=== PATIENT | male | born 1975 | race Hispanic/Latino ===

== ENCOUNTER 2017-04-30 19:29 | Emergency (ER) | payer SELFPAY ==
[2017-04-30 19:32] VITALS: BMI 24.2
[2017-04-30 19:34] VITALS: RESP 16
--- NOTE | 2017-04-30 20:19 | ED PDOC ---
Arrival/HPI - General Chief Complaint: Psychiatric Evaluation Time Seen by Provider: 04/30/17 19:30 Historian: EMS, Police EM Caveat: Intoxicated - History of Present Illness Narrative History of Present Illness (Text): 04/30/17 19:30 A 42 year old male is brought into the emergency department via EMS, accompanied by police for alcohol intoxication and suicidal ideation. HPI and ROS limited due to intoxication. Past Medical History - Provider Review Nursing Documentation Reviewed: Yes - Psychiatric Hx Substance Use: No Family/Social History - Physician Review Nursing Documentation Reviewed: Yes Family/Social History: Unknown Family HX Smoking Status: Unknown If Ever Smoked Hx Alcohol Use: No Hx Substance Use: No Allergies/Home Meds Allergies/Adverse Reactions: Allergies No Known Allergies Allergy (Verified 04/30/17 19:32) Review of Systems - Review of Systems Systems not reviewed;Unavailable: Intoxicated Physical Exam Vital Signs Reviewed: Yes Vital Signs Temp Pulse Resp BP Pulse Ox 05/01/17 09:00 98.2 F 86 16 129/76 96 04/30/17 23:17 98.6 F 97 H 16 115/78 100 04/30/17 19:33 98.7 F 128 H 16 112/83 100 Temperature: Afebrile Blood Pressure: Normal Pulse: Tachycardic Respiratory Rate: Normal Appearance: Positive for: Well-Appearing, Non-Toxic, Comfortable Pain Distress: None Mental Status: Positive for: Alert and Oriented X 3 - Systems Exam Head: Present: Atraumatic, Normocephalic Pupils: Present: PERRL Extroacular Muscles: Present: EOMI Conjunctiva: Present: Normal Mouth: Present: Moist Mucous Membranes Neck: Present: Normal Range of Motion Respiratory/Chest: Present: Clear to Auscultation, Good Air Exchange. No: Respiratory Distress, Accessory Muscle Use Cardiovascular: Present: Regular Rate and Rhythm, Normal S1, S2. No: Murmurs Abdomen: Present: Normal Bowel Sounds. No: Tenderness, Distention, Peritoneal Signs Back: Present: Normal Inspection Upper Extremity: Present: Normal Inspection. No: Cyanosis, Edema Lower Extremity: Present: Normal Inspection. No: Edema Neurological: Present: GCS=15, CN II-XII Intact, Speech Normal Skin: Present: Warm, Dry, Normal Color. No: Rashes Psychiatric: Present: Alert, Oriented x 3, Normal Insight, Normal Concentration , Agitated Medical Decision Making ED Course and Treatment: 04/30/17 19:30 Impression: A 42 year old male with alcohol intoxication and suicidal ideation. Differential Diagnosis include but are not limited to: Alcohol intoxication Plan: -- EKG -- Labs -- Urinalysis -- Reassess and disposition Prior Visits: Notes and results from previous visits were reviewed. The patient last presented to the emergency department yesterday for psychiatric evaluation. Progress Notes: 04/30/17 19:51 The patient became aggressive and cody sweeney was called. Patient give Geodon and place on restraints. 04/30/17 22:17 EKG reviewed by me: NSR @ 93 bpm. Prolonged QT. - Lab Interpretations Lab Results: 04/30/17 21:41 04/30/17 21:41 Lab Results 05/01/17 06:30: Urine Opiates Screen Negative, Urine Methadone Screen Negative, Ur Barbiturates Screen Negative, Ur Phencyclidine Scrn Negative, Ur Amphetamines Screen Negative, U Benzodiazepines Scrn Positive H, U Oth Cocaine Metabols Negative, U Cannabinoids Screen Negative 05/01/17 06:00: Urine Color Yellow, Urine Appearance Clear, Urine pH 6.0, Ur Specific [place] 1.015, Urine Protein 30 H, Urine Glucose (UA) >=1000, Urine Ketones 15 H, Urine Blood Negative, Urine Nitrate Negative, Urine Bilirubin Negative, Urine Urobilinogen 1.0 H, Ur Leukocyte Esterase Negative, Urine RBC 0 - 2, Urine WBC 0 - 2, Ur Epithelial Cells 0 - 2 04/30/17 21:41: Alcohol, Quantitative 287 H 04/30/17 21:41: Salicylates < 1 L, Acetaminophen < 10.0 L 04/30/17 21:41: Sodium 139, Potassium 3.1 L, Chloride 101, Carbon Dioxide 19 L, Anion Gap 22 H, BUN 13, Creatinine 0.8, Est GFR ( Amer) > 60, Est GFR ( Non-Af Amer) > 60, Random Glucose 266 H, Calcium 9.6, Total Bilirubin 0.7, AST 91 H, ALT 87 H, Alkaline Phosphatase 81, Total Protein 7.9, Albumin 4.5, Globulin 3.4, Albumin/Globulin Ratio 1.3 04/30/17 21:41: WBC 6.5 D, RBC 4.87, Hgb 16.3, Hct 45.1, MCV 92.6, MCH 33.5, MCHC 36.1, RDW 12.0, Plt Count 153, MPV 10.1, Gran % 49.1 L, Lymph % (Auto) 43.5 H, [place] % (Auto) 5.1, Eos % (Auto) 1.4 L, Baso % (Auto) 0.9, Gran # 3.19, Lymph # 2.8, [place] # 0.3, Eos # 0.1, Baso # 0.06 I have reviewed the lab results: Yes - RAD Interpretation Radiology Orders: 05/01/17 06:55 CHEST PORTABLE [RAD] Stat - Medication Orders Current Medication Orders: Discontinued Medications Lorazepam (Ativan) 2 mg PO ONCE ONE PRN Reason: Protocol Stop: 05/01/17 07:44 Last Admin: 05/01/17 08:00 Dose: 2 mg Potassium Chloride (K-Dur 20 Meq Er Tab) 40 meq PO STAT STA Stop: 05/01/17 09:36 Ziprasidone (Geodon Inj) 10 mg IM STAT STA PRN Reason: Protocol Stop: 04/30/17 19:52 Last Admin: 04/30/17 20:03 Dose: 10 mg Ziprasidone (Geodon Inj) Confirm Administered Dose 20 mg IM .STK-MED ONE Stop: 04/30/17 19:56 Last Admin: 04/30/17 20:03 Dose: - Transfer of Care Patient signed out to Dr:: gabbi dominguez - Scribe Statement The provider has reviewed the documentation as recorded by the Annaibyasmin Yoo Provider Scribe Attestation: All medical record entries made by the Annaibyasmin were at my direction and personally dictated by me. I have reviewed the chart and agree that the record accurately reflects my personal performance of the history, physical exam, medical decision making, and the department course for this patient. I have also personally directed, reviewed, and agree with the discharge instructions and disposition. Disposition/Present on Arrival - Present on Arrival Any Indicators Present on Arrival: No History of DVT/PE: No History of Uncontrolled Diabetes: No Urinary Catheter: No History of Decub. Ulcer: No History Surgical Site Infection Following: None - Disposition Have Diagnosis and Disposition been Completed?: Yes Diagnosis: Alcohol intoxication Disposition: HOME/ ROUTINE Disposition Time: 07:00 Condition: GOOD Discharge Instructions (ExitCare): Alcohol Intoxication (ED) Additional Instructions: PLEASE RETURN TO THE EMERGENCY DEPARTMENT FOR NEW OR WORSENING SYMPTOMS. RETURN RIGHT AWAY IF YOU CANNOT FOLLOW UP WITH YOUR PRIMARY CARE DOCTOR, CLINIC, OR SPECIALIST IN 1-2 DAYS. Prescriptions: Folic Acid 1 mg PO DAILY #14 tab chlordiazePOXIDE [Chlordiazepoxide HCl] 25 mg PO DAILY #8 cap Thiamine [Vitamin B1 Tab] 100 mg PO DAILY #14 tab Referrals: [facility] Diane Rewinter, [Non-Staff] - Follow up with primary Ange Aguilar MD [Staff Provider] - Follow up with primary
[2017-04-30 21:47] LABS: ADD MANUAL DIFF? NO
[2017-04-30 21:53] LABS: BASO # 0.06 K/mm3 (0.0-2.0); BASO % 0.9 % (0.0-3.0); EOS # 0.1 (0.0-0.7); EOS % 1.4 % (1.5-5.0); GRAN # 3.19 (1.4-6.5); GRAN % 49.1 % (50.0-68.0); HEMATOCRIT 45.1 % (42.0-52.0); LYMPH # 2.8 (1.2-3.4); LYMPH % 43.5 % (22.0-35.0); MEAN CELL VOLUME 92.6 fL (80.0-105.0); MEAN CORPUSCULAR HEMOGLOBIN 33.5 pg (25.0-35.0); MEAN CORPUSCULAR HGB CONC 36.1 g/dl (31.0-37.0); MEAN PLATELET VOLUME 10.1 fl (7.0-11.0); MONO # 0.3 (0.1-0.6); MONO % 5.1 % (1.0-6.0); PLATELET COUNT 153 10^3/uL (120.0-450.0); WHITE BLOOD COUNT 6.5 10^3/ul (4.5-11.0)
[2017-04-30 22:01] LABS: ALB/GLOB RATIO 1.3 (1.1-1.8); ALKALINE PHOSPHATASE 81 U/L (38-133); ALT/SGPT 87 U/L (7-56); AST/SGOT 91 U/L (15-59); BILIRUBIN,TOTAL 0.7 mg/dL (0.2-1.3); BLOOD UREA NITROGEN 13 mg/dL (7-21); CALCIUM 9.6 mg/dL (8.4-10.5); CARBON DIOXIDE 19 mmol/L (21-33); CHLORIDE 101 mmol/L (95-110); GFR AFRICAN-AMERICAN > 60; GLUCOSE,RANDOM 266 mg/dL (70-110); POTASSIUM 3.1 mmol/L (3.6-5.0); SODIUM 139 mmol/L (132-148); TOTAL PROTEIN 7.9 g/dL (5.8-8.3)
[2017-05-01 06:23] LABS: URINE APPEARANCE CLEAR (CLEAR); URINE BILIRUBIN NEGATIVE (NEGATIVE); URINE BLOOD NEGATIVE (NEGATIVE); URINE COLOR YELLOW (YELLOW); URINE GLUCOSE (UA) >=1000 mg/dL (NEGATIVE); URINE KETONE 15 mg/dL (NEGATIVE); URINE LEUKOCYTE ESTERASE NEGATIVE Leu/uL (NEGATIVE); URINE PROTEIN 30 mg/dL (<30 mg/dL)
[2017-05-01 06:31] LABS: URINE EPITHELIAL CELLS 0 - 2 /hpf (0-5); URINE RBC 0 - 2 /hpf (0-2); URINE WBC 0 - 2 /hpf (0-6)
--- NOTE | 2017-05-01 07:12 | ED PDOC ---
Physical Exam Vital Signs Reviewed: Yes Vital Signs Temp Pulse Resp BP Pulse Ox 04/30/17 23:17 98.6 F 97 H 16 115/78 100 04/30/17 19:33 98.7 F 128 H 16 112/83 100 Temperature: Afebrile Blood Pressure: Normal Pulse: Tachycardic Respiratory Rate: Normal Appearance: Positive for: Well-Appearing, Non-Toxic, Comfortable Pain Distress: None Mental Status: Positive for: Alert and Oriented X 3 Medical Decision Making ED Course and Treatment: 05/01/17 07:11 Pending PES evaluation. 05/01/17 07:40 Reports feeling anxious at this time. Patient currently in no distress. Patient denies SI, HI or any other complaints at this time. chest xray Creator : Kalpesh Coleman MD 05/01/2017 08:35 IMPRESSION: No active disease. 05/01/17 09:35 seen by Cheryle and Dr. Aguilar. pt denies SI or HI at this time Currently pt is ANOx3 to person, place, and time. Has good insight and judgment. Denies suicidal or homicidal ideations. Pt has steady gait, ambulates without difficulty, not slurring speech. Pt able to tolerate PO without any difficulty. Patient denies any complaints at this time. Patient is not tremulous , not tachycardic, no signs or symptoms of alcohol withdrawal. Dr. Aguilar states pt can be dc'd home with librium Rx. Pt states he understands to return to the ER right away for new or worsening symptoms or for inability to f/u with PMD or specialist as instructed. Patient states that he fully agrees with and understands discharge instructions. States that he agrees with the plan and disposition. Verbalized and repeated discharge instructions and plan. I have given the patient opportunity to ask any additional questions. - Lab Interpretations Lab Results: 04/30/17 21:41 04/30/17 21:41 Lab Results 05/01/17 06:30: Urine Opiates Screen Negative, Urine Methadone Screen Negative, Ur Barbiturates Screen Negative, Ur Phencyclidine Scrn Negative, Ur Amphetamines Screen Negative, U Benzodiazepines Scrn Positive H, U Oth Cocaine Metabols Negative, U Cannabinoids Screen Negative 05/01/17 06:00: Urine Color Yellow, Urine Appearance Clear, Urine pH 6.0, Ur Specific [place] 1.015, Urine Protein 30 H, Urine Glucose (UA) >=1000, Urine Ketones 15 H, Urine Blood Negative, Urine Nitrate Negative, Urine Bilirubin Negative, Urine Urobilinogen 1.0 H, Ur Leukocyte Esterase Negative, Urine RBC 0 - 2, Urine WBC 0 - 2, Ur Epithelial Cells 0 - 2 04/30/17 21:41: Alcohol, Quantitative 287 H 04/30/17 21:41: Salicylates < 1 L, Acetaminophen < 10.0 L 04/30/17 21:41: Sodium 139, Potassium 3.1 L, Chloride 101, Carbon Dioxide 19 L, Anion Gap 22 H, BUN 13, Creatinine 0.8, Est GFR ( Amer) > 60, Est GFR ( Non-Af Amer) > 60, Random Glucose 266 H, Calcium 9.6, Total Bilirubin 0.7, AST 91 H, ALT 87 H, Alkaline Phosphatase 81, Total Protein 7.9, Albumin 4.5, Globulin 3.4, Albumin/Globulin Ratio 1.3 04/30/17 21:41: WBC 6.5 D, RBC 4.87, Hgb 16.3, Hct 45.1, MCV 92.6, MCH 33.5, MCHC 36.1, RDW 12.0, Plt Count 153, MPV 10.1, Gran % 49.1 L, Lymph % (Auto) 43.5 H, [place] % (Auto) 5.1, Eos % (Auto) 1.4 L, Baso % (Auto) 0.9, Gran # 3.19, Lymph # 2.8, [place] # 0.3, Eos # 0.1, Baso # 0.06 - RAD Interpretation Radiology Orders: 05/01/17 06:55 CHEST PORTABLE [RAD] Stat - Medication Orders Current Medication Orders: Discontinued Medications Lorazepam (Ativan) 2 mg PO ONCE ONE PRN Reason: Protocol Stop: 05/01/17 07:44 Last Admin: 05/01/17 08:00 Dose: 2 mg Ziprasidone (Geodon Inj) 10 mg IM STAT STA PRN Reason: Protocol Stop: 04/30/17 19:52 Last Admin: 04/30/17 20:03 Dose: 10 mg Ziprasidone (Geodon Inj) Confirm Administered Dose 20 mg IM .ST-MED ONE Stop: 04/30/17 19:56 Last Admin: 04/30/17 20:03 Dose: - Scribe Statement The provider has reviewed the documentation as recorded by the Liz Alvarado Provider Liz Attestation: All medical record entries made by the Scribe were at my direction and personally dictated by me. I have reviewed the chart and agree that the record accurately reflects my personal performance of the history, physical exam, medical decision making, and the department course for this patient. I have also personally directed, reviewed, and agree with the discharge instructions and disposition. Disposition/Present on Arrival - Present on Arrival Any Indicators Present on Arrival: No History of DVT/PE: No History of Uncontrolled Diabetes: No Urinary Catheter: No History of Decub. Ulcer: No History Surgical Site Infection Following: None - Disposition Diagnosis: Alcohol intoxication Disposition: HOME/ ROUTINE Disposition Time: 09:38 Patient Plan: Discharge Condition: GOOD Discharge Instructions (ExitCare): Alcohol Intoxication (ED) Additional Instructions: PLEASE RETURN TO THE EMERGENCY DEPARTMENT FOR NEW OR WORSENING SYMPTOMS. RETURN RIGHT AWAY IF YOU CANNOT FOLLOW UP WITH YOUR PRIMARY CARE DOCTOR, CLINIC, OR SPECIALIST IN 1-2 DAYS. Prescriptions: chlordiazePOXIDE [Chlordiazepoxide HCl] 25 mg PO DAILY #8 cap Folic Acid 1 mg PO DAILY #14 tab Thiamine [Vitamin B1 Tab] 100 mg PO DAILY #14 tab Referrals: Josefina Rosa [Primary Care Provider] - Follow up with primary Ange Aguilar MD [Staff Provider] - Follow up with primary
--- NOTE | 2017-05-01 08:32 | RAD ---
HISTORY: pes COMPARISON: 03/10/2017 FINDINGS: LUNGS: No active pulmonary disease. PLEURA: No significant pleural effusion identified, no pneumothorax apparent. CARDIOVASCULAR: Normal. OSSEOUS STRUCTURES: No significant abnormalities. VISUALIZED UPPER ABDOMEN: Normal. OTHER FINDINGS: None. IMPRESSION: No active disease.
[2017-05-01] MEDS ORDERED: Potassium Chloride 20 mEq ER Tab PO STA (09:35)
[2017-05-01 09:54] VITALS: BP 129/76; PULSE 86; TEMP 98.2; O2SAT 96
--- NOTE | 2017-05-01 22:39 | CARD ---
APPROVED REPORT EKG Measurement Heart [id number] <Conclusion> Normal sinus rhythm Prolonged QT Abnormal ECG
== END 2017-05-01 09:50 | disposition home or self-care (01) ==
LOC: ED 19:29
DX: F10.129 Alcohol abuse with intoxication, unspecified (principal); Y90.8 Blood alcohol level of 240 mg/100 ml or more
CPT/HCPCS: 71010; 80053; 81001; 85025; 90791; 93005; 96372; 99285; G0480; J3486